=== PATIENT | female | born 1960 | race Caucasian/White ===

== ENCOUNTER 2018-09-28 19:17 | Emergency (ER) | payer OTHER ==
[2018-09-28 19:44] VITALS: BP 137/81
--- NOTE | 2018-09-28 20:10 | UC ---
Ear Complaint HPI - HPI Summary HPI Summary: C/O ear fullness over the past 10 days. Started on the right, but then both ears involved. Tried candling ear wax and got a lot of wax out but no relief from the fullness. No cough. Denies h/o allergies/ asthma. - History of Current Complaint Chief Complaint: UCGeneralIllness Stated Complaint: THROAT/EAR COMPLAINT Time Seen by Provider: 09/28/18 20:02 Hx Obtained From: Patient Onset/Duration: Gradual Onset, Lasting Days - 10, Still Present Severity Initially: Mild Severity Currently: Moderate Pain Intensity: 4 Aggravating Factors: Nothing Alleviating Factors: Nothing Associated Signs/Symptoms: Positive: Hearing Loss - Allergies/Home Medications Allergies/Adverse Reactions: Allergies Allergy/AdvReac Type Severity Reaction Status Date / Time No Known Allergies Allergy Verified 09/28/18 19:45 Home Medications: Home Medications Cholecalciferol (Vitamin D3) [Vitamin D3] 1,000 unit PO DAILY 09/28/18 [History Confirmed 09/28/18] Ibuprofen TAB* [Motrin TAB* 600 MG] 600 mg PO Q8H PRN 09/28/18 [History Confirmed 09/28/18] PMH/Surg Hx/FS Hx/Imm Hx Previously Healthy: Yes - Surgical History Surgical History: Yes Surgery Procedure, Year, and Place: appy. - Family History Known Family History: Positive: Diabetes - Social History Occupation: Employed Full-time Lives: With Family Alcohol Use: Daily Alcohol Amount: beers daily Substance Use Type: None Smoking Status (MU): Never Smoked Tobacco When Did the Patient Quit Smoking/Using Tobacco: 1 1/2 years - Immunization History Most Recent Influenza Vaccination: not this season Review of Systems All Other Systems Reviewed And Are Negative: Yes ENT: Positive: Ear Ache, Nasal Discharge - post nasal drip Is Patient Immunocompromised?: No Physical Exam Triage Information Reviewed: Yes Appearance: Well-Appearing, No Pain Distress, Well-Nourished Vital Signs: Initial Vital Signs Temp 98.5 F 09/28/18 19:42 Pulse 65 09/28/18 19:42 Resp 16 09/28/18 19:42 BP 137/81 09/28/18 19:42 Pulse Ox 100 09/28/18 19:42 Vital Signs Reviewed: Yes Eyes: Positive: Conjunctiva Inflamed ENT: Positive: Pharynx normal - some lymphoid hyperplasia, Nasal congestion - with allergic changes, TMs normal Neck exam: Normal Respiratory Exam: Normal Cardiovascular Exam: Normal Musculoskeletal Exam: Normal Neurological Exam: Normal Psychological Exam: Normal Skin Exam: Normal Ear Complaint Course/Dx - Differential Dx/Diagnosis Differential Diagnosis/HQI/PQRI: Barotrauma, Cerumen Impaction, Otitis Externa Provider Diagnosis: Allergic rhinitis, Eustachian tube dysfunction Discharge - Sign-Out/Discharge Documenting (check all that apply): Patient Departure All imaging exams completed and their final reports reviewed: No Studies - Discharge Plan Condition: Stable Disposition: HOME Prescriptions: Montelukast Sodium TAB* [Singulair 10 MG TAB*] 10 mg PO BEDTIME #30 tab Patient Education Materials: Allergic Rhinitis (ED) Referrals: Jasmyn Lemons MD [Primary Care Provider] - Additional Instructions: NEILMED SINUS RINSE: CHECK OUT AT [email or web address] Saline nasal wash helps with mucous, allergies and congestion. It can be used up to twice a day or only as needed. Use lukewarm tap water. It does not have to be sterilized or distilled water. Do 1/3 on each side and snort out of both nostrils. Repeat the process with 1/6 of the bottle on each side with snorting in between to finish the solution in the bottle EUSTATION TUBE DYSFUNCTION: The tube that allows the middle ear to equalize the pressure with the outside air is blocked. This can be due to colds, allergies, smoke, or other irritants. Short term treatment can include Afrin, sudafed and nasal cortisone sprays for allergies. - Billing Disposition and Condition Condition: STABLE Disposition: Home
== END 2018-09-28 20:23 | disposition home or self-care (01) ==
LOC: UCCORT 19:17
DX: H69.83 Other specified disorders of Eustachian tube, bilateral (principal); J30.9 Allergic rhinitis, unspecified; R59.0 Localized enlarged lymph nodes
CPT/HCPCS: 99212; G0463